=== PATIENT | female | born 1970 | race Caucasian/White ===

== ENCOUNTER 2019-10-26 06:11 | Inpatient (IN) | payer OTHER ==
[2019-10-22 09:40] VITALS: BMI 26.6
[2019-10-26] MEDS ORDERED: PROPOFOL 20 ML ONE ×5 (07:16)
[2019-10-26] MEDS ORDERED: ceFAZolin SODIUM 1 GM VIAL ONE ×3 (07:19→20:28)
[2019-10-26] MEDS ORDERED: SODIUM CHLORIDE 0.9% P/F 10 ML VIAL IJ ONE (07:19)
[2019-10-26] MEDS ORDERED: BUPIVACAINE LIPOSOME/PF (EXPAREL) 266 MG/20 ML VIAL ONE (07:27)
[2019-10-26] MEDS ORDERED: HEPARIN NA (PORCINE) 5,000 UNITS/ML 1ML VIAL ONE (07:27)
[2019-10-26] MEDS ORDERED: BENZOIN/ALOE VERA/STORAX/TOLU 58 ML BOTTLE ONE (07:28)
[2019-10-26] MEDS ORDERED: BUPIVACAINE HCL/PF 0.25% (2.5MG/ML) 10 ML VIAL ONE (07:28)
[2019-10-26] MEDS ORDERED: THROMBIN (BOVINE) 5,000 UNIT VIAL TP ONE ×2 (07:28→09:37)
[2019-10-26] MEDS ORDERED: ROCURONIUM BROMIDE 50 MG/5 ML SYRINGE ONE (07:29)
[2019-10-26] MEDS ORDERED: SUCCINYLCHOLINE CHLORIDE 200 MG/10 ML SYRINGE ONE (07:29)
[2019-10-26] MEDS ORDERED: MIDAZOLAM HCL 2 MG/2 ML SINGLE DOSE VIAL ONE ×3 (07:52→09:03)
[2019-10-26] MEDS ORDERED: fentaNYL CITRATE 250 MCG/5 ML VIAL ONE (08:45)
[2019-10-26] MEDS ORDERED: ceFAZolin SODIUM 1 GM VIAL IVPB ONE (09:00)
[2019-10-26] MEDS ORDERED: VANCOMYCIN 1,000 MG VIAL (RESTRICTED TO ID ONLY) IVPB ONE (09:00)
[2019-10-26] MEDS ORDERED: HYDROmorphone HCl 2 MG/ML VIAL ONE (09:25)
[2019-10-26] MEDS ORDERED: GLYCOPYRROLATE 0.2 MG/1 ML VIAL ONE (10:17)
[2019-10-26] MEDS ORDERED: NEOSTIGMINE METHYLSULFATE 0.5 MG/1 ML - 10 ML MDV ONE (10:18)
--- NOTE | 2019-10-26 10:50 | PN ---
Progress Note (short form) - Note Progress Note: 48F s/p GINNY L4-S1 & in situ fusion L4-S1 POD #0. -Pain control: patient received pre-op TLIP block w/Exparel; OK to use FIRE PREVENTION CHIEF if needed; transition to oral analgesia post-op; NO NSAID's. -DVT PPx: -Mechanical only: RUDI's, SCD's. -Chemical: None. -Incentive spirometry. -NPO until flatus. -Villatoro care; d/c when ambulating. -Post-op Ancef x 3 doses. -PT/OT/Rehab, OOB. -WBAT B/L LE. -No bending, lifting (>5 lbs), or twisting for 9-12 months. -Care per medical hospitalist teams. -Discharge planning: f/u 7-10 days after discharge at [facility] [place] office; call for appointment; . -Will follow. Rian Payne MD (Orthopaedic Surgery).
[2019-10-26] MEDS ORDERED: ONDANSETRON 4 MG/2 ML VIAL IVPUSH PRN ×2 (10:51→11:26)
--- NOTE | 2019-10-26 10:51 | OP ---
Operative Note - Note: Operative Date: 10/26/19 Pre-Operative Diagnosis: Symptomatic lumbar spine hardware Operation: 1. GINNY L4-S1. 2. In situ fusion L4-S1 Post-Operative Diagnosis: Same as Pre-op Surgeon: [facility] Director: Daljit Payne Anesthesiologist/IRRIGATION SERVICE TECHNICIAN: Angeli Hooker Anesthesia: General Specimens Removed: Lumbar hardware Estimated Blood Loss (mls): 50 Fluid Volume Replaced (mls): 1,200 (Crystalloid) Operative Report Dictated: Yes
[2019-10-26] MEDS ORDERED: MEPERIDINE HCL 25 MG/ML VIAL ONE (11:08)
[2019-10-26] MEDS ORDERED: MEPERIDINE HCL 25 MG/ML VIAL IVPUSH ONE (11:24)
[2019-10-26] MEDS ORDERED: MIDAZOLAM HCL 2 MG/2 ML SINGLE DOSE VIAL IVPUSH ONE (11:25)
[2019-10-26] MEDS ORDERED: LACTATED RINGERS SOLUTION 1,000 ML IV SCH (11:30)
[2019-10-26] MEDS: HYDROmorphone *PCA* 10MG/50ML DISP.SYRIN PCA SCH (13:08)
[2019-10-26] MEDS ORDERED: CEFAZOLIN 1 GM in DEXTROSE 5%-WATER - 50 ML IVPB SCH (15:00)
[2019-10-26] MEDS: CEFAZOLIN 1 GM in DEXTROSE 5%-WATER - 50 ML IVPB SCH ×2 (17:16→21:06)
[2019-10-26] MEDS: LACTATED RINGERS SOLUTION 1,000 ML IV SCH (19:34)
[2019-10-26] MEDS ORDERED: DEXTROSE 5%-WATER - 50 ML IVPB ONE (20:29)
--- NOTE | 2019-10-26 20:36 | HP ---
HISTORY OF PRESENT ILLNESS: 48 F h/o chronic radiculopathy, presents s/p GINNY of L4-L5 and L4-L5 spinal fusion, on PERSONNEL SECURITY ASSISTANT for pain control. Transferred to our hospitalist service for further management of pain and recovery. Patient endorses some pain coming from lower back region but denies fever/chills/cough/SOB/dizziness/LOC/vision changes. Denies moving bowels or passing gas. Villatoro to gravity placed. Denies other comorbid conditions or taking any meds on a regular basis. Recent Travel: denies PAST MEDICAL HISTORY: denies PAST SURGICAL HISTORY: spinal fusion surgeries L4-L5 Social History: denies Smoking: denies Alcohol: denies Drugs: denies Allergies No Known Allergies Allergy (Verified 10/26/19 07:12) HOME MEDICATIONS: Home Medications Medication Instructions Recorded Oxycodone HCl/Acetaminophen 1 each PO PRN PRN 10/22/19 [Oxycodone-Acetaminophen 10-325] REVIEW OF SYSTEMS CONSTITUTIONAL: Absent: fever, chills, diaphoresis, generalized weakness, malaise, loss of appetite, weight change HEENT: Absent: rhinorrhea, nasal congestion, throat pain, throat swelling, difficulty swallowing, mouth swelling, ear pain, eye pain, visual changes CARDIOVASCULAR: Absent: chest pain, syncope, palpitations, irregular heart rate, lightheadedness , peripheral edema RESPIRATORY: Absent: cough, shortness of breath, dyspnea with exertion, orthopnea, wheezing, stridor, hemoptysis GASTROINTESTINAL: Absent: abdominal pain, abdominal distension, nausea, vomiting, diarrhea, constipation, melena, hematochezia GENITOURINARY: Absent: dysuria, frequency, urgency, hesitancy, hematuria, flank pain, genital pain MUSCULOSKELETAL: low back pain Absent: myalgia, arthralgia, joint swelling, neck pain SKIN: Absent: rash, itching, pallor HEMATOLOGIC/IMMUNOLOGIC: Absent: easy bleeding, easy bruising, lymphadenopathy, frequent infections ENDOCRINE: Absent: unexplained weight gain, unexplained weight loss, heat intolerance, cold intolerance NEUROLOGIC: Absent: headache, focal weakness or paresthesias, dizziness, unsteady gait, seizure, mental status changes, bladder or bowel incontinence PSYCHIATRIC: Absent: anxiety, depression, suicidal or homicidal ideation, hallucinations. PHYSICAL EXAMINATION Vital Signs - 24 hr 10/26/19 10/26/19 10/26/19 07:08 07:09 11:06 Temperature 98.3 F 98.0 F Pulse Rate 81 100 H Respiratory 16 25 H Rate Blood Pressure 106/87 O2 Sat by Pulse 99 97 Oximetry (%) 10/26/19 10/26/19 10/26/19 11:15 11:30 11:45 Temperature Pulse Rate 69 80 78 Respiratory 12 10 10 Rate Blood Pressure 132/65 118/66 120/68 O2 Sat by Pulse 100 100 100 Oximetry (%) 10/26/19 10/26/19 10/26/19 12:00 12:15 12:30 Temperature Pulse Rate 80 83 73 Respiratory 10 10 10 Rate Blood Pressure 114/74 118/64 115/64 O2 Sat by Pulse 100 100 100 Oximetry (%) 10/26/19 10/26/19 10/26/19 12:45 13:00 13:08 Temperature Pulse Rate 79 62 62 Respiratory 9 L 11 11 Rate Blood Pressure 109/69 118/66 118/66 O2 Sat by Pulse 100 100 100 Oximetry (%) 10/26/19 10/26/19 10/26/19 13:15 13:30 13:45 Temperature Pulse Rate 86 75 83 Respiratory 11 16 12 Rate Blood Pressure 126/68 117/66 114/68 O2 Sat by Pulse 100 100 98 Oximetry (%) 10/26/19 10/26/19 10/26/19 14:00 14:15 14:30 Temperature Pulse Rate 94 H 89 87 Respiratory 12 14 12 Rate Blood Pressure 117/67 112/74 117/61 O2 Sat by Pulse 100 100 98 Oximetry (%) 10/26/19 10/26/19 10/26/19 14:45 15:00 15:30 Temperature Pulse Rate 98 H 94 H 88 Respiratory 21 H 16 17 Rate Blood Pressure 113/62 116/68 114/66 O2 Sat by Pulse 98 98 100 Oximetry (%) 10/26/19 10/26/19 10/26/19 16:00 16:30 16:40 Temperature 98.3 F Pulse Rate 90 100 H 98 H Respiratory 12 15 16 Rate Blood Pressure 111/64 120/71 120/78 O2 Sat by Pulse 100 98 100 Oximetry (%) 10/26/19 17:00 Temperature 98.4 F Pulse Rate 101 H Respiratory 20 Rate Blood Pressure 131/69 O2 Sat by Pulse 98 Oximetry (%) GA calm, AAox3, speaking in full sentences, NAD HEENT NC/AT, EOMI, neck supple, no scleral icterus, MMM Chest CTAB anteriorally, no crackles or wheezing CVS S1, S2+, RRR, no m/r/g Abd Soft, NT, ND, no guarding Ext No LE edema, no calf tenderness Laboratory Results - last 24 hr 10/26/19 10/26/19 10/26/19 06:23 06:23 13:05 Serum , Qual Negative Blood Type A POSITIVE A POSITIVE Antibody Screen Negative ASSESSMENT/PLAN: 48 F h/o chronic low back pain, presents s/p GINNY and spinal fusion of L4-L5 on PERSONNEL SECURITY ASSISTANT for pain control, AC held, denies associated symptoms. S/p removal of hardware and spinal fusion of L4-L5 Pain controlled w/ PERSONNEL SECURITY ASSISTANT cont. supplement with bowel regimen, docusate/senna, cont. gentle IVF, obtain Chem/ CBC in AM, avoid NSAIDs incentive spirometry SCD/TEDs for DVT ppx for now rest of management as per surgery team DVT ppx: SCD/RUDI FEN: IVF, chem in AM, NPO Family Medical History Family History: Denies Visit type - Emergency Visit Emergency Visit: No - New Patient This patient is new to me today: Yes Date on this admission: 10/26/19 - Critical Care Critical Care patient: No
[2019-10-26] MEDS ORDERED: DOCUSATE NA 100 MG/10 ML UNIT-DOSE CUPS PO PRN (20:37)
[2019-10-26] MEDS: SENNOSIDES 8.6MG TABLET (FP) PO SCH (21:06)
[2019-10-27] MEDS: KETOROLAC TROMETHAMINE 15 MG/ML VIAL IVPUSH PRN ×2 (00:42→07:01)
[2019-10-27] MEDS ORDERED: ceFAZolin SODIUM 1 GM VIAL ONE (02:19)
[2019-10-27] MEDS ORDERED: DEXTROSE 5%-WATER - 50 ML IVPB ONE (02:19)
[2019-10-27] MEDS: CEFAZOLIN 1 GM in DEXTROSE 5%-WATER - 50 ML IVPB SCH (04:19)
[2019-10-27 09:42] LABS: BLOOD UREA NITROGEN 40.9 mg/dL (7-18); CALCIUM 9.4 mg/dL (8.5-10.1); CREATININE 1.9 mg/dL (0.55-1.3); POTASSIUM 4.6 mmol/L (3.5-5.1)
[2019-10-27 10:22] LABS: BASO % 0.1 % (0-2.0); EOS % 0.9 % (0-4.5); HEMATOCRIT 34.3 % (32.4-45.2); HEMOGLOBIN 11.5 GM/dL (10.7-15.3); LYMPH % 16.5 % (8-40); MCH 29.3 pg (25.7-33.7); MCHC 33.4 g/dl (32.0-36.0); MEAN CELL VOLUME 87.8 fl (80-96); MEAN PLT VOLUME 7.5 fl (7.5-11.1); MONO % 13.1 % (3.8-10.2); NEUT % 69.4 % (42.8-82.8); PLATELET COUNT 296 K/MM3 (134-434); RBC 3.91 M/mm3 (3.60-5.2); RDW 13.9 % (11.6-15.6); WHITE BLOOD COUNT 12.5 K/mm3 (4.0-10.0)
[2019-10-27] MEDS ORDERED: ACETAMINOPHEN 1000 MG/100 ML VIAL (NON FORMULARY) IVPB ONE (10:40)
--- NOTE | 2019-10-27 11:04 | PATH ---
Surgical Pathology Report Patient Name: MARLI BERNARD Med. Rec. #: [id number] /Age/Gender: 1970 (Age: 48) / F Account: [id number] Location: [facility] MED/SURG Taken: 10/26/2019 Received: 10/26/2019 Reported: 10/27/2019 Physicians: Rian Payne M.D. Specimen(s) Received REMOVED HARDWARE Clinical History Spinal enthesopathy lumbar region Final Diagnosis HARDWARE, LUMBAR SPINE, REMOVAL: SURGICAL HARDWARE. MACROSCOPIC DIAGNOSIS Electronically Signed Leyda Coyle M.D. Gross Description Received fresh labeled "removed hardware," are 4 paulino metallic screws ranging from 3.7-3.9 cm in length. No soft tissue is present. No sections are submitted, gross only. /10/26/2019 saudi/10/26/2019
--- NOTE | 2019-10-27 11:22 | PN ---
Physical Exam: 48 F h/o chronic radiculopathy, presents s/p GINNY of L4-L5 and L4-L5 spinal fusion, on POST TRONIC MACHINE OPERATOR for pain control. Transferred to our hospitalist service for further management of pain and recovery. This morning patient complaining of worsening LBP, endorses POST TRONIC MACHINE OPERATOR not effectively treating her pain. ?history of opioid dependence, was given Toradol this morning by surgery team. Otherwise denies sensation loss, bowel/urinary incontinence., CP/SOB/LOC. GA in mild distress, tearful, AAox3, speaking in full sentences HEENT NC/AT, EOMI, dry MM, neck supple Chest CTAB, no crackles/wheezing CVS S1, S2+, RRR Abd Soft, mildly distended, NT, no guarding Ext No LE edema, no calf tenderness, moves all 4 ext. Vital Signs - 24 hr 10/26/19 10/26/19 10/26/19 11:30 11:45 12:00 Temperature Pulse Rate 80 78 80 Respiratory 10 10 10 Rate Blood Pressure 118/66 120/68 114/74 O2 Sat by Pulse 100 100 100 Oximetry (%) 10/26/19 10/26/19 10/26/19 12:15 12:30 12:45 Temperature Pulse Rate 83 73 79 Respiratory 10 10 9 L Rate Blood Pressure 118/64 115/64 109/69 O2 Sat by Pulse 100 100 100 Oximetry (%) 10/26/19 10/26/19 10/26/19 13:00 13:08 13:15 Temperature Pulse Rate 62 62 86 Respiratory 11 11 11 Rate Blood Pressure 118/66 118/66 126/68 O2 Sat by Pulse 100 100 100 Oximetry (%) 10/26/19 10/26/19 10/26/19 13:30 13:45 14:00 Temperature Pulse Rate 75 83 94 H Respiratory 16 12 12 Rate Blood Pressure 117/66 114/68 117/67 O2 Sat by Pulse 100 98 100 Oximetry (%) 10/26/19 10/26/19 10/26/19 14:15 14:30 14:45 Temperature Pulse Rate 89 87 98 H Respiratory 14 12 21 H Rate Blood Pressure 112/74 117/61 113/62 O2 Sat by Pulse 100 98 98 Oximetry (%) 10/26/19 10/26/19 10/26/19 15:00 15:30 16:00 Temperature Pulse Rate 94 H 88 90 Respiratory 16 17 12 Rate Blood Pressure 116/68 114/66 111/64 O2 Sat by Pulse 98 100 100 Oximetry (%) 10/26/19 10/26/19 10/26/19 16:30 16:40 17:00 Temperature 98.3 F 98.4 F Pulse Rate 100 H 98 H 101 H Respiratory 15 16 20 Rate Blood Pressure 120/71 120/78 131/69 O2 Sat by Pulse 98 100 98 Oximetry (%) 10/26/19 10/27/19 10/27/19 21:00 01:00 03:00 Temperature 98.1 F 98.4 F Pulse Rate 96 H 99 H 93 H Respiratory 18 20 20 Rate Blood Pressure 116/61 101/72 108/59 L O2 Sat by Pulse 98 99 Oximetry (%) 10/27/19 10/27/19 05:00 07:16 Temperature 99.9 F H Pulse Rate 93 H 87 Respiratory 18 20 Rate Blood Pressure 108/59 L 111/63 O2 Sat by Pulse 98 Oximetry (%) Laboratory Results - last 24 hr 10/26/19 10/27/19 10/27/19 13:05 08:30 08:30 WBC Cancelled Corrected WBC (auto) Cancelled RBC Cancelled Hgb Cancelled Hct Cancelled MCV Cancelled MCH Cancelled MCHC Cancelled RDW Cancelled Plt Count Cancelled MPV Cancelled Absolute Neuts (auto) Cancelled Neutrophils % Cancelled Lymphocytes % Cancelled Monocytes % Cancelled Eosinophils % Cancelled Basophils % Cancelled Nucleated RBC % Cancelled Platelet Estimate Cancelled Platelet Comment Cancelled Sodium 141 Potassium 4.6 Chloride 109 H Carbon Dioxide 26 Anion Gap 6 L BUN 40.9 H Creatinine 1.9 H Est GFR (CKD-EPI)AfAm 35.76 Est GFR (CKD-EPI)NonAf 30.85 Random Glucose 92 Calcium 9.4 Blood Type A POSITIVE 10/27/19 09:20 WBC 12.5 H Corrected WBC (auto) RBC 3.91 Hgb 11.5 Hct 34.3 MCV 87.8 MCH 29.3 MCHC 33.4 RDW 13.9 Plt Count 296 MPV 7.5 Absolute Neuts (auto) 8.7 H Neutrophils % 69.4 Lymphocytes % 16.5 Monocytes % 13.1 H Eosinophils % 0.9 Basophils % 0.1 Nucleated RBC % 0 Platelet Estimate Platelet Comment Sodium Potassium Chloride Carbon Dioxide Anion Gap BUN Creatinine Est GFR (CKD-EPI)AfAm Est GFR (CKD-EPI)NonAf Random Glucose Calcium Blood Type Current Medications Generic Name Dose Route Start Last Admin Trade Name Cynthia PRN Reason Stop Dose Admin Docusate Sodium 100 mg 10/26/19 20:37 Colace Liquid - PO DAILY PRN CONSTIPATION Hydromorphone HCl 10 mg 10/26/19 11:30 10/26/19 13:08 Hydromorphone 10 Mg/50 Ml-Ns POST TRONIC MACHINE OPERATOR 11/02/19 11:25 10 mg POST TRONIC MACHINE OPERATOR MILAGROS Administration Protocol Lactated Ringer's 1,000 mls @ 125 mls/hr 10/26/19 11:00 10/26/19 19:34 Lactated Ringers Solution IV Not Given ASDIR MILAGROS Ondansetron HCl 4 mg 10/26/19 10:51 Zofran Injection IVPUSH Q6H PRN NAUSEA AND/OR VOMITING Polyethylene Glycol 17 gm 10/27/19 10:30 Miralax (For Daily Use) - PO DAILY MILAGROS Senna 1 tab 10/26/19 22:00 10/26/19 21:06 Senna - PO 1 tab HS MILAGROS Administration A/P: 48 F s/p GINNY and spinal fusion of L4-L5, receiving POST TRONIC MACHINE OPERATOR for pain control, presents with worsening LBP asking for more pain medicaitons. S/p removal of hardware and spinal fusion of L4-L5 Cont. POST TRONIC MACHINE OPERATOR as per surgery team, IV Tylenol for breakthrough pain (avoid excessive opioids due to possible dependence) supplement with bowel regimen, docusate/senna, added Miralax, give fleet enema PRN if no BM by end of today (has not moved her bowels or passed gas yet) cont. IVF, AVOID NSAIDS incentive spirometry SCD/TEDs for DVT ppx for now rest of management as per surgery team BEN v.s. ?CKD we only have 1 chem for baseline likely 2/2 Toradol and NSAID use STOP NSAIDs, cont. IVF, repeat chem, if continues to trend up obtain renal/ bladder sono and will consult renal, monitor urine output if markedly decreased place woods back DVT ppx: SCD/RUDI FEN: IVF, daily chem, regular diet as tolerated Visit type - Emergency Visit Emergency Visit: No - New Patient This patient is new to me today: No - Critical Care Critical Care patient: No - Discharge Referral Referred to [facility] Med P.C.: No
[2019-10-27] MEDS: HYDROmorphone *PCA* 10MG/50ML DISP.SYRIN PCA SCH (12:44)
[2019-10-27] MEDS ORDERED: ACETAMINOPHEN 1000 MG/100 ML VIAL (NON FORMULARY) IVPB PRN (13:12)
[2019-10-27] MEDS ORDERED: oxyCODONE HCL 5 MG TABLET PO PRN (13:12)
--- NOTE | 2019-10-27 13:21 | PN ---
Progress Note (short form) - Note Progress Note: Anesthesia POD#1 S/P L4-5 hardware removal under GA and SATURATOR VSS,no N/V,poor pain control with IV SATURATOR; No complication to GA seen. A/P Agreed to discontinue Dilaudid SATURATOR And put her on combination of oral narcotics and non narcotics. Orders are placed. Stefany Hennessy MD.
[2019-10-27] MEDS: POLYETHYLENE GLYCOL 3350 119 GM BTL PO SCH ×2 (13:46→23:56)
[2019-10-27] MEDS: LACTATED RINGERS SOLUTION 1,000 ML IV SCH (13:51)
--- NOTE | 2019-10-27 14:04 | OP ---
DATE OF OPERATION: 10/26/2019 SURGEON: Rian Payne MD PRE FABRICATOR SURGEON: Daljit Payne MD PREOPERATIVE DIAGNOSIS: Hardware bursitis, lumbar spine, with recurrent stenosis. POSTOPERATIVE DIAGNOSIS: Hardware bursitis, lumbar spine, with recurrent stenosis. OPERATION PERFORMED: 1. Removal of prior L4, L5, S1 instrumentation (Abdullahi Jass screws). (16089) 2. Inspection of fusion mass. () 3. L4, L5 bilateral laminectomies. (77218-64, 97336-79) 4. Revision posterolateral arthrodesis. (67089-47, 30424-39) 5. Morselized bone autograft. () 6. Morselized bone allograft. () 7. Complex wound closure, 4 layers, 20cm. (91831 x 3) ANESTHESIA: General. ANTIBIOTICS GIVEN: Kefzol 2 g, vancomycin 1 g and TXA 1 g given. OPERATION IN DETAIL: Patient correctly identified, brought to the operating room and placed prone on the Steve table. The lumbar spine was prepped and draped in the routine manner with Betadine scrub and solution, wiped with alcohol and DuraPrep applied. X-rays were taken intraoperatively, revealing the positioning of the Abdullahi Jass screws and neuromonitoring utilized. Midline incision through the old wound. The skin was opened. Subcutaneous tissue opened to the tip of the spinous process. Subperiosteal dissection at the level of L3 performed and then extended onto S1. The tissues were retracted and gently coaxing the soft tissue off the bone graft site the distal screws were readily apparent. The proximal 2 screws required removal of superficial bone in order to gain access to the actual screw heads. The screws were uncomplicated and revealed no significant inflammatory change around the screw heads. The screws were removed without any difficulty. The fusion mass did appear solid but flimsy, meaning that there was a degree of sponginess to palpating the degree of movement in stressing the bone graft site. Using Leksells as well as Kerrison up-cuts, the posterior laminae elements were removed bilaterally at L4 and L5. At that point the wounds were thoroughly lavaged. Morselized autograft bone and allograft bone expanded with blood products was seated into the intertransverse plane to strengthen the bone graft. This completed the arthrodesis. Closure: Muscle & fascia 1 Vicryl. Subcutaneous 1 and 2-0 Vicryl. Skin 3-0 Monocryl and Steri-Strips. No drain was utilized. Hemostasis was achieved. Operation went well. No complications. MD CARMELLA Cullen/[id number] MTDD
[2019-10-27] MEDS ORDERED: oxyCODONE HCL 10 MG SUSTAINED ACTING TABLET PO SCH (22:00)
[2019-10-27] MEDS: SENNOSIDES 8.6MG TABLET (FP) PO SCH (22:08)
[2019-10-27] MEDS: oxyCODONE HCL 10 MG SUSTAINED ACTING TABLET PO SCH (23:54)
[2019-10-28] MEDS: LACTATED RINGERS SOLUTION 1,000 ML IV SCH ×2 (00:25→10:23)
[2019-10-28] MEDS: oxyCODONE HCL 10 MG SUSTAINED ACTING TABLET PO SCH ×3 (05:50→21:12)
[2019-10-28] MEDS: KETOROLAC TROMETHAMINE 30 MG/1 ML VIAL IVPUSH PRN (10:17)
[2019-10-28 10:22] LABS: BASO % 0.3 % (0-2.0); EOS % 0.9 % (0-4.5); HEMATOCRIT 33.9 % (32.4-45.2); LYMPH % 13.8 % (8-40); MCH 28.7 pg (25.7-33.7); MCHC 32.5 g/dl (32.0-36.0); MEAN CELL VOLUME 88.3 fl (80-96); MEAN PLT VOLUME 7.5 fl (7.5-11.1); MONO % 12.1 % (3.8-10.2); NEUT % 72.9 % (42.8-82.8); PLATELET COUNT 286 K/MM3 (134-434); RBC 3.84 M/mm3 (3.60-5.2); RDW 13.7 % (11.6-15.6); WHITE BLOOD COUNT 15.3 K/mm3 (4.0-10.0)
[2019-10-28] MEDS: POLYETHYLENE GLYCOL 3350 119 GM BTL PO SCH (10:27)
[2019-10-28 10:50] LABS: BLOOD UREA NITROGEN 4.8 mg/dL (7-18); CALCIUM 8.1 mg/dL (8.5-10.1); CREATININE 0.5 mg/dL (0.55-1.3); POTASSIUM 3.4 mmol/L (3.5-5.1)
--- NOTE | 2019-10-28 14:00 | PN ---
Progress Note, Physician Chief Complaint: doing well, pain better, off of dilaudid truck driver salesperson, and tolerating po meds, - Current Medication List Current Medications: Active Medications Acetaminophen (Ofirmev Injection -) 1,000 mg IVPB Q6H PRN PRN Reason: FEVER Last Admin: 10/27/19 20:04 Dose: 1,000 mg Docusate Sodium (Colace Liquid -) 100 mg PO DAILY PRN PRN Reason: CONSTIPATION Last Admin: 10/27/19 13:46 Dose: 100 mg Lactated Ringer's (Lactated Ringers Solution) 1,000 mls @ 125 mls/hr IV ASDIR [facility] Last Admin: 10/28/19 10:23 Dose: 125 mls/hr Ketorolac Tromethamine (Toradol Injection -) 30 mg IVPUSH Q6H PRN PRN Reason: PAIN LEVEL 4 - 6 Stop: 11/01/19 23:16 Last Admin: 10/28/19 10:17 Dose: 30 mg Ondansetron HCl (Zofran Injection) 4 mg IVPUSH Q6H PRN PRN Reason: NAUSEA AND/OR VOMITING Oxycodone HCl (Oxycontin -) 10 mg PO TID [facility] Stop: 10/28/19 23:29 Last Admin: 10/28/19 05:50 Dose: 10 mg Polyethylene Glycol (Miralax (For Daily Use) -) 17 gm PO DAILY [facility] Last Admin: 10/28/19 10:27 Dose: 17 grams Senna (Senna -) [address] [facility] Last Admin: 10/27/19 22:08 Dose: 1 tab - Objective Vital Signs: Vital Signs Temperature 99.2 F 10/28/19 10:00 Pulse Rate 90 10/28/19 10:00 Respiratory Rate 18 10/28/19 10:00 Blood Pressure 118/64 10/28/19 10:00 O2 Sat by Pulse Oximetry (%) 95 10/27/19 21:00 Constitutional: Yes: Well Nourished Eyes: Yes: EOM Intact HENT: Yes: Normocephalic Neck: Yes: Supple, Trachea Midline Cardiovascular: Yes: Regular Rate and Rhythm Respiratory: Yes: Regular, CTA Bilaterally Gastrointestinal: Yes: Normal Bowel Sounds Extremities: Yes: WNL Edema: No ...Motor Strength: WNL Labs: CBC, BMP 10/28/19 10:00 10/28/19 10:00 Impression/Plan Impression/Plan: A/P S/p removal of hardware and spinal fusion of L4-L5 off of the truck driver salesperson and is tolerating po meds, tolerating meal , now , no BM yet, stopped IVF, supplement with bowel regimen, docusate/senna, Miralax, incentive spirometry SCD/TEDs for DVT ppx for now dc as per surgery, normal renal functions, 1st was elevated now resolved, avoid nephrotoxins, DVT ppx: SCD/RUDI Visit type - Emergency Visit Emergency Visit: No - New Patient This patient is new to me today: Yes Date on this admission: 10/28/19 - Critical Care Critical Care patient: No - Discharge Referral Referred to [facility] Med P.C.: No
[2019-10-28] MEDS ORDERED: POTASSIUM CHLORIDE TABS 20 MEQ TABLET.ER (FP) PO ONE (16:18)
[2019-10-28] MEDS ORDERED: PT OWN MED DRAWER 7, Y5N ONE (17:41)
[2019-10-28] MEDS: SENNOSIDES 8.6MG TABLET (FP) PO SCH (21:12)
[2019-10-29] MEDS: KETOROLAC TROMETHAMINE 30 MG/1 ML VIAL IVPUSH PRN ×2 (03:11→22:04)
[2019-10-29] MEDS: POLYETHYLENE GLYCOL 3350 119 GM BTL PO SCH (10:07)
--- NOTE | 2019-10-29 13:24 | PN ---
Physical Exam: SUBJECTIVE: Patient seen and examined, reports constipation, but passing flatus. denies any abdominal pain. back pain controlled OBJECTIVE: per PT note, patient ambulated apx 125 feet discharge when cleared by surgery Pt is a 48 year old female with a significant past medical history of chronic radiculopathy, s/p GINNY of L4-L5 and L4-L5 spinal fusion on 10/26/[address] Payne. Transferred to our hospitalist service for further management of pain and recovery. Patient endorses some pain coming from lower back region but currently better controlled. discharge patient home when cleared by surgery. Vital Signs Period Temp Pulse Resp BP Sys/Mojica Pulse Ox Last 24 Hr 98.4 F-100.1 F 82-93 20-20 91-123/54-69 94 GENERAL: The patient is awake, alert, and fully oriented, in no acute distress. HEAD: Normal with no signs of trauma. EYES: PERRL, extraocular movements intact, sclera anicteric, conjunctiva clear. No ptosis. ENT: Ears normal, nares patent, oropharynx clear without exudates, moist mucous membranes. NECK: Trachea midline, full range of motion, supple. LUNGS: Breath sounds equal, clear to auscultation bilaterally HEART: Regular rate and rhythm ABDOMEN: Soft, nontender, nondistended, normoactive bowel sounds EXTREMITIES: no edema. NEUROLOGICAL: Normal speech, gait not observed. PSYCH: Normal mood, normal affect. SKIN: back dressing intact Active Medications Generic Name Dose Route Start Last Admin Trade Name Freq PRN Reason Stop Dose Admin Acetaminophen 1,000 mg 10/27/19 13:12 10/27/19 20:04 Ofirmev Injection - IVPB 1,000 mg Q6H PRN Administration FEVER Docusate Sodium 100 mg 10/26/19 20:37 10/27/19 13:46 Colace Liquid - PO 100 mg DAILY PRN Administration CONSTIPATION Lactated Ringer's 1,000 mls @ 125 mls/hr 10/26/19 11:00 10/28/19 10:23 Lactated Ringers Solution IV 125 mls/hr ASDIR MILAGROS Administration Ketorolac Tromethamine 30 mg 10/27/19 23:17 10/29/19 03:11 Toradol Injection - IVPUSH 11/01/19 23:16 30 mg Q6H PRN Administration PAIN LEVEL 4 - 6 Ondansetron HCl 4 mg 10/26/19 10:51 Zofran Injection IVPUSH Q6H PRN NAUSEA AND/OR VOMITING Oxycodone HCl 10 mg 10/29/19 11:31 Roxicodone - PO Q6H PRN PAIN LEVEL 7 - 10 Polyethylene Glycol 17 gm 10/27/19 10:30 10/29/19 10:07 Miralax (For Daily Use) - PO 17 grams DAILY MILAGROS Administration Senna 1 tab 10/26/19 22:00 10/28/19 21:12 Senna - PO 1 tab HS MILAGROS Administration ASSESSMENT/PLAN: Surgery: S/p removal of hardware and spinal fusion of L4-L5 on 10/26/2019. tolerating po pain medications. ambulating with PT, on a bowel regimen and dulcolax for constipation. incentive spirometer use encouraged SCD/TEDs for DVT ppx for now dc as per surgery, awaiting clearance Renal: creatinine improved, will repeat labs now d/c ivf as she is tolerating PO monitor daily labs avoid nephrotoxins Visit type - Emergency Visit Emergency Visit: Yes ED Registration Date: 10/26/19 Care time: The patient presented to the Emergency Department on the above date and was hospitalized for further evaluation of their emergent condition. - New Patient This patient is new to me today: Yes Date on this admission: 10/29/19 - Critical Care Critical Care patient: No - Discharge Referral Referred to [facility] Med P.C.: No
[2019-10-29] MEDS ORDERED: BISACODYL 10 MG SUPP.RECT RC ONE (14:00)
[2019-10-29] MEDS: oxyCODONE HCL 5 MG TABLET PO PRN (16:59)
[2019-10-29 19:38] LABS: ALBUMIN 2.9 g/dl (3.4-5.0); BILIRUBIN,TOTAL 0.2 mg/dL (0.2-1); BLOOD UREA NITROGEN 5.8 mg/dL (7-18); CALCIUM 8.6 mg/dL (8.5-10.1); CREATININE 0.5 mg/dL (0.55-1.3); TOT PROT 6.3 g/dl (6.4-8.2)
[2019-10-29] MEDS: SENNOSIDES 8.6MG TABLET (FP) PO SCH (22:04)
[2019-10-29] MEDS: LACTATED RINGERS SOLUTION 1,000 ML IV SCH (22:05)
[2019-10-30] MEDS: POLYETHYLENE GLYCOL 3350 119 GM BTL PO SCH (10:09)
[2019-10-30 12:40] VITALS: BP 110/55; PULSE 78; TEMP 98.4
--- NOTE | 2019-10-30 12:40 | DS ---
Physical Exam: SUBJECTIVE: Patient seen and examined at the bedside. pain improving and feeling better, still some pain on her back managed with oxycodone. Patient discharge home today, approved by Dr. Payne. Dr. Payne to call in oxycodone for continued pain management. OBJECTIVE: per PT note, patient ambulated apx 125 feet cleared by surgery for d/c home. ------ Pt is a 48 year old female with a significant past medical history of chronic radiculopathy, s/p GINNY of L4-L5 and L4-L5 spinal fusion on 10/26/[address] Payne. Transferred to our hospitalist service for further management of pain and recovery. Patient cleared for discharge home by surgery. Vital Signs Period Temp Pulse Resp BP Sys/Mojica Pulse Ox Last 24 Hr 98.0 F-98.7 F 74-96 20-20 110-126/55-75 PHYSICAL EXAM GENERAL: The patient is awake, alert, and fully oriented, in no acute distress. HEAD: Normal with no signs of trauma. EYES: PERRL, extraocular movements intact, sclera anicteric, conjunctiva clear. No ptosis. ENT: Ears normal, nares patent, oropharynx clear without exudates, moist mucous membranes. NECK: Trachea midline, full range of motion, supple. LUNGS: Breath sounds equal, clear to auscultation bilaterally HEART: Regular rate and rhythm ABDOMEN: Soft, nontender, nondistended, normoactive bowel sounds, had bm yesterday EXTREMITIES: no edema. NEUROLOGICAL: Normal speech, gait not observed. PSYCH: Normal mood, normal affect. SKIN: back dressing intact and dry LABS Laboratory Results - last 24 hr 10/29/19 18:00 Sodium 138 Potassium 4.0 Chloride 102 Carbon Dioxide 31 Anion Gap 5 L BUN 5.8 L Creatinine 0.5 L Est GFR (CKD-EPI)AfAm 133.58 Est GFR (CKD-EPI)NonAf 115.25 Random Glucose 98 Calcium 8.6 Total Bilirubin 0.2 AST 17 ALT 26 Alkaline Phosphatase 92 Total Protein 6.3 L Albumin 2.9 L HOSPITAL COURSE: Date of Admission:10/26/19 Date of Discharge: 10/30/19 Surgery: S/p removal of hardware and spinal fusion of L4-L5 on 10/26/2019. tolerating po pain medications. ambulating with PT, on a bowel regimen, had bm today. incentive spirometer use encouraged SCD/TEDs cleared by surgery for d/c home Renal: creatinine improved continue oral hydration discharge home with surgery follow up. Patient to make a follow up appointment with Dr. Payne office. Minutes to complete discharge: 45 Discharge Summary Problems reviewed: Yes Reason For Visit: SPINAL ENTHESOPATHY, LUMBAR REGION Condition: Stable - Instructions Diet, Activity, Other Instructions: Ms Esquivel: Please follow up with Dr. Payne for a post op appointment within [address] Payne will be calling in pain medications for you. Please keep dressing dry. Thank you for allowing us to care for you. Referrals: Rian Payne MD [Staff Physician] - Disposition: HOME - Home Medications Comprehensive Discharge Medication List: Ambulatory Orders Oxycodone HCl/Acetaminophen [Oxycodone-Acetaminophen 10-325] 1 each PO PRN PRN 10/22/19 Walker [Ultra-Light Rollator] 1 each [facility] DAILY #1 each 10/30/19 This patient is new to me today: No Emergency Visit: Yes ED Registration Date: 10/26/19 Care time: The patient presented to the Emergency Department on the above date and was hospitalized for further evaluation of their emergent condition. Critical Care patient: No - Discharge Referral Referred to [facility] No
[2019-10-30] MEDS: oxyCODONE HCL 5 MG TABLET PO PRN (14:06)
== END 2019-10-30 14:39 | disposition home or self-care (01) | DRG 304 ==
LOC: JSAMEDAYSX 06:11 → J8W 16:48
PROVIDERS: ADMIT Orthopaedic Surgery Orthopaedic Surgery of the Spine; ATTEND Nurse Practitioner Family
PROC: 0SG0071 Fusion of Lumbar Vertebral Joint with Autologous Tissue Substitute, Posterior Approach, Posterior Column, Open Approach (ICD-10-PCS; 2019-10-26)
PROC: 00NY0ZZ Release Lumbar Spinal Cord, Open Approach (ICD-10-PCS; 2019-10-26)
PROC: 4A10X4G Monitoring of Central Nervous Electrical Activity, Intraoperative, External Approach (ICD-10-PCS; 2019-10-26)
PROC: 0SP004Z Removal of Internal Fixation Device from Lumbar Vertebral Joint, Open Approach (ICD-10-PCS; principal; 2019-10-26 08:00)
DX: T84.63XA Infection and inflammatory reaction due to internal fixation device of spine, initial encounter (principal); M71.58 Other bursitis, not elsewhere classified, other site; M54.16 Radiculopathy, lumbar region; M48.061 Spinal stenosis, lumbar region without neurogenic claudication
CPT/HCPCS: 36415; 72100-TC-FY; 76000-TC-FY; 80048; 80053; 84703; 85025; 86850; 86900; 86901; 88300-TC; 94010; 94760; 97116-GP; 97162-GP; J0131; J1644